=== PATIENT | male | born 1985 | race Caucasian/White ===

== ENCOUNTER 2016-06-07 19:17 | Inpatient (IN) | payer MEDICAID, OTHER ==
[~2016-06-07] VITALS: Ht 170.2 cm; Wt 71.2 kg
[~2016-06-07 19:17] MED LIST: DIPH25 PO; LURA40 PO; TRAZ-144 PO
[2016-06-07 20:17] LABS: BASOPHILS % (AUTO) 1.1 % (0.0-2.0); EOSINOPHILS % (AUTO) 4.7 % (1.0-6.0); HEMATOCRIT 44.7 % (41-53); HEMOGLOBIN 14.8 g/dL (13.5-17.5); LYMPHOCYTES # (AUTO) 2.8 K/uL (1.0-4.8); LYMPHOCYTES % (AUTO) 30.1 % (22.0-44.0); MEAN CORPUSCULAR HEMOGLOBIN 30.6 pg (26.0-34.0); MEAN CORPUSCULAR VOLUME 93 fL (80-100); MONOCYTES # (AUTO) 0.8 K/uL (0.1-1.0); MONOCYTES % (AUTO) 8.9 % (2.0-9.0); NEUTROPHILS # (AUTO) 5.1 K/uL (1.8-7.7); NEUTROPHILS % (AUTO) 55.2 % (40.0-70.0); PLATELET COUNT (AUTO) 235 K/uL (150-450); RED BLOOD CELL COUNT(AUTO) 4.82 MIL/uL (4.50-5.90); RED CELL DISTRIBUTION WIDTH 13.9 % (11.5-14.5); WHITE BLOOD COUNT (AUTO) 9.3 K/uL (4.5-11.0)
[2016-06-07 20:41] LABS: ANION GAP 10 mmol/L (8-16); CALCIUM, TOTAL 9.2 mg/dL (8.8-10.5); CARBON DIOXIDE 27 mmol/L (22-29); CHLORIDE 104 mmol/L (98-107); CREATININE 0.75 mg/dL (0.60-1.30); GLOMERULAR FILTR. RATE CALC > 60 mL/min (>60); POTASSIUM 3.8 mmol/L (3.5-5.1); SODIUM SERUM 141 mmol/L (136-145); UREA NITROGEN, BLOOD 11 mg/dL (7-18)
[2016-06-07 20:48] LABS: ALANINE AMINOTRANSFERASE 31 U/L (12-78); ALBUMIN 3.9 g/dL (3.4-5.0); ASPARTATE AMINOTRANSFERASE 22 U/L (15-37); BILIRUBIN,TOTAL 0.2 mg/dL (0.1-1.0); TOTAL PROTEIN, SERUM 7.4 g/dL (6.4-8.2)
[2016-06-07] MEDS ORDERED: LORazepam 2 MG TABLET PO PRN (22:30)
[2016-06-07] MEDS ORDERED: HALOPERIDOL 5 MG TABLET PO PRN (22:30)
[2016-06-07 23:52] LABS: APPEARANCE,URINE CLEAR (CLEAR); GLUCOSE, URINE (UA) NEGATIVE (NEGATIVE); KETONES,URINE NEGATIVE (NEGATIVE); LEUKOCYTE ESTERASE ,URINE NEGATIVE (NEGATIVE); OCCULT BLOOD,URINE SMALL (NEGATIVE); PROTEIN,URINE NEGATIVE (NEGATIVE)
[2016-06-07 23:58] LABS: ADD UA MICROSCOPIC YES
[2016-06-08 00:16] LABS: SQUAMOUS EPITHELIAL CELL,UR Rare /LPF (None Seen); WBC,URINE 0-2 /HPF (0-5)
[2016-06-08 01:19] VITALS: BP 129/72
[2016-06-08] MEDS ORDERED: INFLUENZA VIRUS VACCINE QVS 2016-17 (3YR+)/PF 60 MCG/0.5 ML SYRINGE IM ONE (01:30)
[2016-06-08 08:01] VITALS: BP 128/77
[2016-06-08] MEDS: CITALOPRAM HYDROBROMIDE 20 MG TABLET PO SCH (10:08)
[2016-06-08 16:00] VITALS: BP 111/73
[2016-06-08] MEDS ORDERED: ALBUTEROL SULFATE HFA 90 MCG/PUFF 8 GM INHALER IH PRN (17:30)
[2016-06-08] MEDS ORDERED: BACITRACIN 28.4 GM OINTMENT TP PRN (17:30)
[2016-06-08] MEDS ORDERED: ACETAMINOPHEN 325 MG TABLET PO PRN (17:30)
[2016-06-08] MEDS ORDERED: BENZOCAINE/MENTHOL LOZENGE [8 LOZENGES/PACKET] MM PRN (17:30)
[2016-06-08] MEDS ORDERED: MAGNESIUM HYDROXIDE SUSPENSION 30 ML UDCUP PO PRN (17:30)
[2016-06-08] MEDS ORDERED: CloNIDine HCL 0.1 MG TABLET PO PRN (17:30)
[2016-06-08] MEDS ORDERED: PETROLATUM,WHITE 71 GM JELLY TP PRN (17:30)
[2016-06-08] MEDS ORDERED: IBUPROFEN 600 MG TABLET PO PRN (17:30)
[2016-06-08] MEDS ORDERED: ONDANSETRON HCL 4 MG TABLET PO PRN (17:30)
[2016-06-08] MEDS ORDERED: LOPERAMIDE HCL 2 MG CAPSULE PO PRN (17:30)
[2016-06-08] MEDS ORDERED: MAG HYDROX/AL HYDROX/SIMETH ES 30 ML SUSPENSION UDCUP PO PRN (17:30)
[2016-06-09 06:30] VITALS: BP 116/60
[2016-06-09 08:00] VITALS: BP 111/59
[2016-06-09] MEDS: CITALOPRAM HYDROBROMIDE 20 MG TABLET PO SCH (09:56)
[2016-06-09 16:36] VITALS: BP 115/76
[2016-06-10 06:22] VITALS: BP 112/70
[2016-06-10 08:30] VITALS: BP 133/68
[2016-06-10] MEDS: CITALOPRAM HYDROBROMIDE 20 MG TABLET PO SCH (09:10)
[2016-06-10 16:36] VITALS: BP 121/67
[2016-06-10] MEDS: ZOLPIDEM TARTRATE 10 MG TABLET PO PRN (21:34)
[2016-06-11 08:00] VITALS: BP 118/77
[2016-06-11] MEDS: CITALOPRAM HYDROBROMIDE 20 MG TABLET PO SCH (09:13)
[2016-06-11 16:49] VITALS: BP 125/79
[2016-06-11] MEDS: ZOLPIDEM TARTRATE 10 MG TABLET PO PRN (22:22)
[2016-06-12 08:00] VITALS: BP 114/76
[2016-06-12] MEDS: CITALOPRAM HYDROBROMIDE 20 MG TABLET PO SCH (09:34)
[2016-06-12 18:08] VITALS: BP 123/64
[2016-06-13 08:00] VITALS: BP 128/68
[2016-06-13] MEDS: CITALOPRAM HYDROBROMIDE 20 MG TABLET PO SCH (09:50)
[2016-06-13 19:43] VITALS: BP 127/76
[2016-06-13] MEDS ORDERED: CITA20TA9 PO (21:00)
[2016-06-13] MEDS: ZOLPIDEM TARTRATE 10 MG TABLET PO PRN (21:04)
[2016-06-14 08:45] VITALS: BP 121/80
[2016-06-14] MEDS: CITALOPRAM HYDROBROMIDE 20 MG TABLET PO SCH ×2 (09:00→10:27)
== END 2016-06-14 09:00 | disposition home or self-care (01) | DRG 751 ==
LOC: EMS 19:18 → 3EI 22:57
PROVIDERS: ADMIT Psychiatry & Neurology Child & Adolescent Psychiatry; ATTEND Psychiatry & Neurology Child & Adolescent Psychiatry
DX: F33.2 Major depressive disorder, recurrent severe without psychotic features (principal); R45.851 Suicidal ideations; F15.10 Other stimulant abuse, uncomplicated; F17.210 Nicotine dependence, cigarettes, uncomplicated; F12.90 Cannabis use, unspecified, uncomplicated; Z59.0 Homelessness; Z28.21 Immunization not carried out because of patient refusal
CPT/HCPCS: 99285; 99406; G0480